=== PATIENT | female | born 1950 | race Caucasian/White ===

== ENCOUNTER → 2017-12-08 | Outpatient (CLI) | payer OTHER, MEDICARE | LOC: FIMAGING 07:31 | PROVIDERS: ATTEND Internal Medicine | DX: Z12.31 Encounter for screening mammogram for malignant neoplasm of breast (principal) ==

== ENCOUNTER → 2018-01-07 | Outpatient (CLI) | payer OTHER, MEDICARE | LOC: BMCIMAGING 11:53 | PROVIDERS: ATTEND Internal Medicine | DX: M24.851 Other specific joint derangements of right hip, not elsewhere classified (principal); M24.852 Other specific joint derangements of left hip, not elsewhere classified ==

== ENCOUNTER → 2019-02-14 | Outpatient (CLI) | payer OTHER, MEDICARE | LOC: BMCIMAGING 07:09 | PROVIDERS: ATTEND Internal Medicine | DX: Z12.31 Encounter for screening mammogram for malignant neoplasm of breast (principal) ==